=== PATIENT | female | born 1975 | race Caucasian/White ===

== ENCOUNTER 2023-07-27 10:36 | Emergency (ER) | payer BC ==
[2023-07-27] MEDS ORDERED: Acetaminophen/HYDROcodone 325-5 MG Tab PO ONE (11:05)
== END 2023-07-27 12:15 | disposition home or self-care (01) ==
LOC: CC.ED 10:36
DX: S63.501A Unspecified sprain of right wrist, initial encounter (principal); Z91.013 Allergy to seafood; W22.8XXA Striking against or struck by other objects, initial encounter
CPT/HCPCS: 73110-RT; 99283; A9270-GY